=== PATIENT | female | born 1955 | race Caucasian/White ===

== ENCOUNTER 2017-11-06 10:15 | Inpatient (IN) | payer MEDICARE ==
[~2017-11-06] VITALS: Ht 149.9 cm; Wt 88.7 kg
[2017-11-06 10:15] VITALS: BP 113/41
[~2017-11-06 10:15] MED LIST: AMARYL2 MG PO; ATENOLOL25 MG PO; BRIN20TA PO; CLONAZEPAM1 M1 PO; CLONIDINE0.2 MG PO; CORTISPORIN SUS10 ML OT; DEPAKOTE ER500 MG PO; EXTENDED PHENY300 MG PO; GEODON80 MG PO; INVEGA6 MG PO; JANUVIA100 MG PO; LISINOPRIL10 M1 PO; LOTRISONE30 ML PO; METFORMIN500 MG PO; MOBIC15 MG PO; MOTRIN800 MG PO; MUCINEX DM 30 M1 TE1 PO; NAPROXEN500 MG PO; NORFLEX100 MG PO; NOVOLOG FLEX100 U/ML SC; PRILOSEC40 M1 PO; RANITIDINE150 MG PO; RISPERDAL0.5 MG PO; Synthroid,Levo50 MCG PO; TRAMADOL HCL50 MG PO; VITAMIN D50000 I3 PO; ZITHROMAX Z PA250 MG PO
[2017-11-06 10:32] LABS: BILIRUBIN NEGATIVE (NEGATIVE); BLOOD 1+ (NEGATIVE); CLARITY CLOUDY (CLEAR); COLOR YELLOW (YELLOW); GLUCOSE NEGATIVE (NEGATIVE); KETONE NEGATIVE (NEGATIVE); LEUKO ESTERASE 3+ (NEGATIVE); NITRITE POSITIVE (NEGATIVE); UROBILINOGEN 0.2 E.U./dl (0.2-1.0)
[2017-11-06 10:42] LABS: BACTERIA 4+; EPITHELIAL CELLS TNTC; RBC TNTC rbc/hpf (0-2); WBC TNTC wbc/hpf (0-5)
[2017-11-06 10:46] LABS: BASO # 0.1 10*3/uL (0.0-0.1); BASO % 0.4 % (0.0-1.0); EOS # 0.2 10*3/uL (0.0-0.4); EOS % 1.6 % (1.0-4.0); HEMATOCRIT 31.7 % (37.0-47.0); HEMOGLOBIN 9.8 g/dl (12.0-16.0); LYMPH # 1.4 10*3/uL (1.3-4.4); LYMPH % 9.9 % (27.0-41.0); MEAN CELL VOLUME 83.9 fl (81.0-99.0); MEAN CORPUSCULAR HGB 25.9 pg (27.0-31.0); MEAN CORPUSCULAR HGB CONC 30.9 g/dl (33.0-37.0); MEAN PLATELET VOLUME 10.2 fl (9.6-12.3); MONO # 0.6 10*3/uL (0.1-1.0); MONO % 3.9 % (3.0-9.0); NEUT # 11.7 10*3/uL (2.3-7.9); NEUT % 83.8 % (47.0-73.0); PLATELET COUNT AUTOMATED 340 10*3/uL (130-400); RED BLOOD COUNT 3.78 10*6/uL (4.10-5.10); RED CELL DISTRI WIDTH 15.2 % (0-14.5); WHITE BLOOD COUNT 13.9 10*3/uL (4.8-10.8)
[2017-11-06 10:54] LABS: ACT PARTIAL THROMBO TIME 23.3 SECONDS (20.8-31.5)
[2017-11-06] MEDS ORDERED: LIPITOR40 MG PO (11:03)
[2017-11-06] MEDS ORDERED: VITAMIN D31000 UNI1 PO (11:04)
[2017-11-06] MEDS ORDERED: OLANZAPINE5 MG PO (11:04)
[2017-11-06] MEDS ORDERED: TOPAMAX50 MG PO (11:04)
[2017-11-06 11:05] LABS: CREATININE 2.02 mg/dL (0.55-1.02); POTASSIUM 3.2 mmol/L (3.5-5.1); TOTAL PROTEIN 7.4 gm/dL (6.4-8.2)
[2017-11-06] MEDS ORDERED: HYDR25T PO (11:05)
[2017-11-06] MEDS ORDERED: GLIMEPIRIDE2 MG PO (11:05)
[2017-11-06] MEDS ORDERED: LISINOPRIL40 MG PO (11:05)
[2017-11-06] MEDS ORDERED: RISPERDAL3 M1 PO (11:06)
[2017-11-06] MEDS ORDERED: HYDROXYZINE HCL25 M1 PO (11:06)
[2017-11-06] MEDS ORDERED: METFORMIN500 MG PO ×3 (11:07→11:30)
[2017-11-06 11:08] VITALS: BP 132/55
[2017-11-06] MEDS ORDERED: AMLODIPINE BESY10 MG PO (11:09)
[2017-11-06 11:30] VITALS: BP 131/56
[2017-11-06] MEDS ORDERED: AMARYL2 MG PO ×2 (11:33)
[2017-11-06 16:00] VITALS: BP 114/67
[2017-11-06 20:00] VITALS: BP 122/53
[2017-11-07] VITALS: BP 133/49
[2017-11-07 07:34] LABS: BASO # 0.1 10*3/uL (0.0-0.1); BASO % 0.7 % (0.0-1.0); EOS # 0.4 10*3/uL (0.0-0.4); EOS % 4.4 % (1.0-4.0); HEMATOCRIT 29.9 % (37.0-47.0); HEMOGLOBIN 9.3 g/dl (12.0-16.0); LYMPH # 2.1 10*3/uL (1.3-4.4); LYMPH % 21.9 % (27.0-41.0); MEAN CELL VOLUME 84.5 fl (81.0-99.0); MEAN CORPUSCULAR HGB 26.3 pg (27.0-31.0); MEAN CORPUSCULAR HGB CONC 31.1 g/dl (33.0-37.0); MEAN PLATELET VOLUME 10.3 fl (9.6-12.3); MONO # 0.6 10*3/uL (0.1-1.0); MONO % 5.9 % (3.0-9.0); NEUT # 6.3 10*3/uL (2.3-7.9); NEUT % 66.6 % (47.0-73.0); PLATELET COUNT AUTOMATED 333 10*3/uL (130-400); RED BLOOD COUNT 3.54 10*6/uL (4.10-5.10); RED CELL DISTRI WIDTH 15.4 % (0-14.5); WHITE BLOOD COUNT 9.5 10*3/uL (4.8-10.8)
[2017-11-07 07:42] LABS: ALBUMIN 2.6 gm/dl (3.1-4.5); CREATININE 1.3 mg/dL (0.55-1.02); FREE T4 1.1 ng/dl (0.76-1.46); PHOSPHOROUS 2.5 mg/dL (2.5-4.9); POTASSIUM 4.1 mmol/L (3.5-5.1); TOTAL PROTEIN 6.4 gm/dL (6.4-8.2)
[2017-11-07 07:46] LABS: THYROID STIM HORMONE (HS) 7.81 uIU/ml (0.358-4.75)
[2017-11-07 08:00] VITALS: BP 126/50
[2017-11-07 09:41] LABS: VITAMIN D, 25-HYDROXY 35.4 ng/mL (30-100)
[2017-11-07 12:00] VITALS: BP 143/70
[2017-11-07 16:00] VITALS: BP 132/52
[2017-11-07 20:00] VITALS: BP 124/86
[2017-11-08] VITALS: BP 120/75
[2017-11-08 07:12] LABS: BASO # 0.1 10*3/uL (0.0-0.1); BASO % 0.8 % (0.0-1.0); EOS # 0.5 10*3/uL (0.0-0.4); EOS % 4.1 % (1.0-4.0); HEMATOCRIT 29.6 % (37.0-47.0); LYMPH # 3.2 10*3/uL (1.3-4.4); LYMPH % 26.3 % (27.0-41.0); MEAN CELL VOLUME 84.8 fl (81.0-99.0); MEAN CORPUSCULAR HGB 25.8 pg (27.0-31.0); MEAN CORPUSCULAR HGB CONC 30.4 g/dl (33.0-37.0); MEAN PLATELET VOLUME 10.2 fl (9.6-12.3); MONO # 0.7 10*3/uL (0.1-1.0); MONO % 6.1 % (3.0-9.0); NEUT # 7.6 10*3/uL (2.3-7.9); NEUT % 62.3 % (47.0-73.0); PLATELET COUNT AUTOMATED 337 10*3/uL (130-400); RED BLOOD COUNT 3.49 10*6/uL (4.10-5.10); RED CELL DISTRI WIDTH 15.6 % (0-14.5); WHITE BLOOD COUNT 12.1 10*3/uL (4.8-10.8)
[2017-11-08 07:37] LABS: CREATININE 1.17 mg/dL (0.55-1.02)
[2017-11-08 08:00] VITALS: BP 134/54
[2017-11-08] MEDS ORDERED: AMINOPHYLLIN200 MG PO ×2 (11:15→11:33)
== END 2017-11-08 12:03 | disposition home or self-care (01) | DRG 871 ==
LOC: ED 10:15 → 5E 10:57 → EDHOLD 10:57 → 5E 11:03
PROVIDERS: Emergency Medicine; Family Medicine
DX: A41.9 Sepsis, unspecified organism (principal); N17.0 Acute kidney failure with tubular necrosis; E87.2 Acidosis; N39.0 Urinary tract infection, site not specified; E44.0 Moderate protein-calorie malnutrition; R65.20 Severe sepsis without septic shock; E87.6 Hypokalemia; N18.3 Chronic kidney disease, stage 3 (moderate); R31.9 Hematuria, unspecified; D64.9 Anemia, unspecified; G40.909 Epilepsy, unspecified, not intractable, without status epilepticus; I12.9 Hypertensive chronic kidney disease with stage 1 through stage 4 chronic kidney disease, or unspecified chronic kidney disease; E11.65 Type 2 diabetes mellitus with hyperglycemia; E11.22 Type 2 diabetes mellitus with diabetic chronic kidney disease; E55.9 Vitamin D deficiency, unspecified; E78.5 Hyperlipidemia, unspecified; E11.649 Type 2 diabetes mellitus with hypoglycemia without coma; F41.1 Generalized anxiety disorder; F32.9 Major depressive disorder, single episode, unspecified; E66.01 Morbid (severe) obesity due to excess calories; E03.9 Hypothyroidism, unspecified; B96.1 Klebsiella pneumoniae [K. pneumoniae] as the cause of diseases classified elsewhere; Z88.0 Allergy status to penicillin; Z88.8 Allergy status to other drugs, medicaments and biological substances; Z91.041 Radiographic dye allergy status; Z79.899 Other long term (current) drug therapy; Z90.49 Acquired absence of other specified parts of digestive tract; Z90.89 Acquired absence of other organs; Z90.721 Acquired absence of ovaries, unilateral; Z98.51 Tubal ligation status; Z82.49 Family history of ischemic heart disease and other diseases of the circulatory system; Z68.39 Body mass index [BMI] 39.0-39.9, adult

== ENCOUNTER 2018-06-11 16:00 | Inpatient (IN) | payer MEDICARE ==
[~2018-06-11] VITALS: Ht 149.9 cm; Wt 84.5 kg
--- NOTE | ~2018-06-11 | EKG ---
[place], [place] ELECTROCARDIOGRAM REPORT NAME: LAMONTE COELLO UNIT #: [id number] ROOM: 518 DOCTOR: ANA MARÍA DRAFT REPORT BIRTHDATE: [birth year] [facility] Test Date: 2018-06-11 Test Time: 17:28:03 Pat Name: LAMONTE COELLO Department: Room: 518 Gender: F Seam Closer: 18 : 1955 Requested By: ANTHONY DRISCOLL Order Number: [id number] Reading MD: Ashkan Thomson MD Measurements Intervals [place] Rate: 72 P: 52 VA: 201 QRS: 58 QRSD: 88 T: 0 QT: 380 QTc: 416 Interpretive Statements Sinus rhythm Electronically Signed On 06-11-2018 18:18:28 PST by Ashkan Thomson MD CM:EKGRPT:ELECTROCARDIOGRAM REPORT [id number] ANTHONY GOTTI DRAFT REPORT ANTHONY DRISCOLL MD
--- NOTE | ~2018-06-11 | PR ---
[place], [place] PROGRESS NOTE NAME: LAMONTE COELLO UNIT #: [id number] ROOM: 518 DOCTOR: MINA TRIPATHI MD BIRTHDATE: [birth year] DOS: 06/15/2018 NEPHROLOGY FOLLOWUP NOTE SUBJECTIVE: The patient is seen and examined. She is awake and alert. Denies shortness of breath or chest pain. She is on room air. She feels well and hopes to go home tomorrow. PHYSICAL EXAMINATION: VITAL SIGNS: Temperature 97.2, pulse 65, respiration rate 18, blood pressure 129/50. HEENT: Shows no JVD. LUNGS: Diminished breath sounds with no wheeze. HEART: S1, S2. No rub, thrill or gallop. ABDOMEN: Soft, nontender. There is no organomegaly. EXTREMITIES: Showed no edema. SKIN: Showed no rash. LABORATORY DATA: Hemoglobin 8.8, white count 12.1, platelets 293. Sodium 141, potassium 4.2, BUN 49, creatinine 2.5, improved from 3.0, glucose 118, calcium 8.4. IMPRESSION AND PLAN: 1. Acute kidney injury, which continues to improve. Continue to follow labs while in the hospital. Dose meds for current creatinine clearance. Replace electrolytes as needed. 2. Anemia. Transfuse as needed. 3. Leukocytosis. The patient is on antibiotics. 4. Hypothyroidism. Continue levothyroxine. 5. The patient is acceptable for discharge from renal standpoint if her creatinine is stable or continues to improve. MINA TRIPATHI MD CM:PNTRANS [id number] MINA TRIPATHI MD [id number]/15/[id number] interface
[2018-06-11 16:00] VITALS: BP 122/36
[~2018-06-11 16:00] MED LIST changes: +AMINOPHYLLIN200 MG PO; +AMLODIPINE BESY10 MG PO; +GLIMEPIRIDE2 MG PO; +GLUCOPHAGE500 M1 PO; +HYDR25T PO; +LIPITOR40 MG PO; +LISINOPRIL40 MG PO; +OLANZAPINE5 MG PO; +RISPERDAL3 M1 PO; +TOPAMAX50 MG PO; +VISTARIL25 M2 PO; +VITAMIN D31000 UNI1 PO
[2018-06-11 16:47] LABS: BASO # 0.1 10*3/uL (0.0-0.1); BASO % 0.4 % (0.0-1.0); EOS # 0.1 10*3/uL (0.0-0.4); EOS % 0.6 % (1.0-4.0); HEMATOCRIT 36.2 % (37.0-47.0); HEMOGLOBIN 10.8 g/dl (12.0-16.0); LYMPH # 1.4 10*3/uL (1.3-4.4); LYMPH % 7.7 % (27.0-41.0); MEAN CELL VOLUME 80.1 fl (81.0-99.0); MEAN CORPUSCULAR HGB 23.9 pg (27.0-31.0); MEAN CORPUSCULAR HGB CONC 29.8 g/dl (33.0-37.0); MEAN PLATELET VOLUME 10.6 fl (9.6-12.3); MONO # 0.7 10*3/uL (0.1-1.0); NEUT # 15.7 10*3/uL (2.3-7.9); NEUT % 86.6 % (47.0-73.0); PLATELET COUNT AUTOMATED 358 10*3/uL (130-400); RED BLOOD COUNT 4.52 10*6/uL (4.10-5.10); RED CELL DISTRI WIDTH 17.4 % (0-14.5); WHITE BLOOD COUNT 18.1 10*3/uL (4.8-10.8)
[2018-06-11 16:59] LABS: ACT PARTIAL THROMBO TIME 27.8 SECONDS (20.8-31.5); INTERNATIONAL NORM RATIO 0.9 (2.0-3.5)
[2018-06-11 17:01] LABS: BILIRUBIN NEGATIVE (NEGATIVE); BLOOD 2+ (NEGATIVE); CLARITY CLOUDY (CLEAR); COLOR YELLOW (YELLOW); GLUCOSE NEGATIVE (NEGATIVE); KETONE TRACE (NEGATIVE); LEUKO ESTERASE 2+ (NEGATIVE); NITRITE NEGATIVE (NEGATIVE); SPECIFIC GRAVITY >= 1.030 (1.005-1.030); UROBILINOGEN 0.2 E.U./dl (0.2-1.0)
[2018-06-11 17:04] LABS: ALBUMIN 3.2 gm/dl (3.1-4.5); ALKALINE PHOSPHATASE 128 U/L (45-117); BUN 92 mg/dl (7-24); CHLORIDE 108 mmol/L (98-107); CREATININE 6.47 mg/dL (0.55-1.02); POTASSIUM 5.5 mmol/L (3.5-5.1); SGOT/AST 11 IU/L (3-35); SGPT/ALT 14 U/L (12-78); SODIUM 136 mmol/L (136-145); TOTAL PROTEIN 8.3 gm/dL (6.4-8.2)
[2018-06-11 17:07] LABS: TROPONIN I < 0.015 ng/ml (<0.045)
[2018-06-11 17:08] LABS: BACTERIA 3+; WBC TNTC wbc/hpf (0-5)
[2018-06-11 17:46] VITALS: BP 134/94
[2018-06-11] MEDS ORDERED: KLONOPIN0.5 MG PO (17:50)
[2018-06-11] MEDS ORDERED: BENZTROPINE MESY1 MG PO (18:01)
[2018-06-11 18:05] VITALS: BP 124/54
[2018-06-11] MEDS ORDERED: Synthroid,Levo25 MCG PO (18:33)
[2018-06-11 20:00] VITALS: BP 125/69
[2018-06-12] VITALS: BP 114/59
[2018-06-12 05:23] LABS: BASO # 0.1 10*3/uL (0.0-0.1); BASO % 0.8 % (0.0-1.0); EOS # 0.6 10*3/uL (0.0-0.4); EOS % 4.7 % (1.0-4.0); HEMATOCRIT 30.8 % (37.0-47.0); HEMOGLOBIN 9.4 g/dl (12.0-16.0); LYMPH # 2.6 10*3/uL (1.3-4.4); LYMPH % 21.9 % (27.0-41.0); MEAN CELL VOLUME 77.8 fl (81.0-99.0); MEAN CORPUSCULAR HGB 23.7 pg (27.0-31.0); MEAN CORPUSCULAR HGB CONC 30.5 g/dl (33.0-37.0); MEAN PLATELET VOLUME 10.6 fl (9.6-12.3); MONO # 0.8 10*3/uL (0.1-1.0); MONO % 6.8 % (3.0-9.0); NEUT # 7.7 10*3/uL (2.3-7.9); NEUT % 65.5 % (47.0-73.0); PLATELET COUNT AUTOMATED 326 10*3/uL (130-400); RED BLOOD COUNT 3.96 10*6/uL (4.10-5.10); RED CELL DISTRI WIDTH 17.2 % (0-14.5); WHITE BLOOD COUNT 11.8 10*3/uL (4.8-10.8)
[2018-06-12 05:34] LABS: ALBUMIN 2.5 gm/dl (3.1-4.5); CREATININE 5.37 mg/dL (0.55-1.02); PHOSPHOROUS 5.1 mg/dL (2.5-4.9); TOTAL PROTEIN 6.7 gm/dL (6.4-8.2)
[2018-06-12 05:40] LABS: FREE T4 0.82 ng/dl (0.76-1.46); THYROID STIM HORMONE (HS) 1.91 uIU/ml (0.358-4.75)
[2018-06-12 07:52] LABS: VITAMIN D, 25-HYDROXY 30.3 ng/mL (30-100)
[2018-06-12 08:00] VITALS: BP 112/41
[2018-06-12 12:00] VITALS: BP 133/58
[2018-06-12 16:00] VITALS: BP 122/48
[2018-06-12 20:00] VITALS: BP 116/37
[2018-06-13] VITALS: BP 119/48
[2018-06-13 06:32] LABS: BASO # 0.1 10*3/uL (0.0-0.1); BASO % 1.1 % (0.0-1.0); EOS # 0.6 10*3/uL (0.0-0.4); EOS % 6.6 % (1.0-4.0); HEMATOCRIT 26.6 % (37.0-47.0); HEMOGLOBIN 8.6 g/dl (12.0-16.0); LYMPH % 31.6 % (27.0-41.0); MEAN CORPUSCULAR HGB 24.2 pg (27.0-31.0); MEAN CORPUSCULAR HGB CONC 32.3 g/dl (33.0-37.0); MEAN PLATELET VOLUME 10.1 fl (9.6-12.3); MONO # 0.8 10*3/uL (0.1-1.0); MONO % 8.9 % (3.0-9.0); NEUT # 4.9 10*3/uL (2.3-7.9); NEUT % 51.5 % (47.0-73.0); PLATELET COUNT AUTOMATED 290 10*3/uL (130-400); RED BLOOD COUNT 3.56 10*6/uL (4.10-5.10); WHITE BLOOD COUNT 9.5 10*3/uL (4.8-10.8)
[2018-06-13 06:39] LABS: MEAN CELL VOLUME 74.7 fl (81.0-99.0)
[2018-06-13 06:48] LABS: ALBUMIN 2.3 gm/dl (3.1-4.5); CREATININE 3.7 mg/dL (0.55-1.02); POTASSIUM 4.2 mmol/L (3.5-5.1); TOTAL PROTEIN 5.9 gm/dL (6.4-8.2)
[2018-06-13 08:00] VITALS: BP 145/57
[2018-06-13 12:00] VITALS: BP 142/44
[2018-06-13 16:00] VITALS: BP 139/62
[2018-06-13 20:00] VITALS: BP 150/69
[2018-06-14] VITALS: BP 124/52
[2018-06-14 03:20] VITALS: BP 98/64
[2018-06-14 06:20] LABS: BASO # 0.1 10*3/uL (0.0-0.1); EOS # 0.7 10*3/uL (0.0-0.4); EOS % 5.8 % (1.0-4.0); HEMOGLOBIN 8.9 g/dl (12.0-16.0); LYMPH # 4.3 10*3/uL (1.3-4.4); LYMPH % 37.3 % (27.0-41.0); MEAN CELL VOLUME 76.1 fl (81.0-99.0); MEAN CORPUSCULAR HGB 24.2 pg (27.0-31.0); MEAN CORPUSCULAR HGB CONC 31.8 g/dl (33.0-37.0); MEAN PLATELET VOLUME 10.5 fl (9.6-12.3); MONO # 1.1 10*3/uL (0.1-1.0); MONO % 9.2 % (3.0-9.0); NEUT # 5.3 10*3/uL (2.3-7.9); NEUT % 46.4 % (47.0-73.0); PLATELET COUNT AUTOMATED 300 10*3/uL (130-400); RED BLOOD COUNT 3.68 10*6/uL (4.10-5.10); RED CELL DISTRI WIDTH 16.8 % (0-14.5); WHITE BLOOD COUNT 11.5 10*3/uL (4.8-10.8)
[2018-06-14 08:00] VITALS: BP 135/56
[2018-06-14 12:00] VITALS: BP 148/64
[2018-06-14 16:00] VITALS: BP 139/60
[2018-06-14 20:00] VITALS: BP 126/46
[2018-06-15] VITALS: BP 142/51
[2018-06-15 06:02] LABS: CREATININE 2.5 mg/dL (0.55-1.02); POTASSIUM 4.2 mmol/L (3.5-5.1)
[2018-06-15 06:08] LABS: BASO # 0.1 10*3/uL (0.0-0.1); BASO % 1.2 % (0.0-1.0); EOS # 0.9 10*3/uL (0.0-0.4); EOS % 7.7 % (1.0-4.0); HEMATOCRIT 28.5 % (37.0-47.0); HEMOGLOBIN 8.8 g/dl (12.0-16.0); LYMPH # 4.3 10*3/uL (1.3-4.4); LYMPH % 35.5 % (27.0-41.0); MEAN CELL VOLUME 78.1 fl (81.0-99.0); MEAN CORPUSCULAR HGB 24.1 pg (27.0-31.0); MEAN CORPUSCULAR HGB CONC 30.9 g/dl (33.0-37.0); MEAN PLATELET VOLUME 10.7 fl (9.6-12.3); MONO # 1.1 10*3/uL (0.1-1.0); MONO % 8.9 % (3.0-9.0); NEUT # 5.6 10*3/uL (2.3-7.9); NEUT % 46.4 % (47.0-73.0); PLATELET COUNT AUTOMATED 293 10*3/uL (130-400); RED BLOOD COUNT 3.65 10*6/uL (4.10-5.10); RED CELL DISTRI WIDTH 16.5 % (0-14.5); WHITE BLOOD COUNT 12.1 10*3/uL (4.8-10.8)
[2018-06-15 08:00] VITALS: BP 144/67
[2018-06-15 12:00] VITALS: BP 157/59
[2018-06-15 16:00] VITALS: BP 129/50
[2018-06-15 20:00] VITALS: BP 126/43
[2018-06-16] VITALS: BP 135/45
[2018-06-16 06:55] LABS: CREATININE 2.23 mg/dL (0.55-1.02); POTASSIUM 3.9 mmol/L (3.5-5.1)
[2018-06-16 08:00] VITALS: BP 116/46
[2018-06-16 12:00] VITALS: BP 121/43
[2018-06-16 16:00] VITALS: BP 141/59
[2018-06-16] MEDS ORDERED: VIBRAMYCIN100 MG PO (16:37)
[2018-06-16] MEDS ORDERED: GLIPIZIDE XL2.5 M1 PO (16:59)
[2018-06-17] MEDS ORDERED: AMINOPHYLLIN200 MG PO (11:36)
== END 2018-06-16 17:19 | disposition home or self-care (01) | DRG 871 ==
LOC: ED 16:00 → 5E 17:21 → EDHOLD 17:21 → 5E 17:43
PROVIDERS: Emergency Medicine; Family Medicine; Internal Medicine; Internal Medicine Nephrology
DX: A41.9 Sepsis, unspecified organism (principal); N17.0 Acute kidney failure with tubular necrosis; E43 Unspecified severe protein-calorie malnutrition; N39.0 Urinary tract infection, site not specified; E87.2 Acidosis; E11.649 Type 2 diabetes mellitus with hypoglycemia without coma; N18.3 Chronic kidney disease, stage 3 (moderate); E87.5 Hyperkalemia; D64.9 Anemia, unspecified; E03.9 Hypothyroidism, unspecified; G40.909 Epilepsy, unspecified, not intractable, without status epilepticus; F25.0 Schizoaffective disorder, bipolar type; F41.1 Generalized anxiety disorder; F32.9 Major depressive disorder, single episode, unspecified; E87.8 Other disorders of electrolyte and fluid balance, not elsewhere classified; K21.9 Gastro-esophageal reflux disease without esophagitis; B96.1 Klebsiella pneumoniae [K. pneumoniae] as the cause of diseases classified elsewhere; I12.9 Hypertensive chronic kidney disease with stage 1 through stage 4 chronic kidney disease, or unspecified chronic kidney disease; E66.01 Morbid (severe) obesity due to excess calories; E11.22 Type 2 diabetes mellitus with diabetic chronic kidney disease; Z88.6 Allergy status to analgesic agent; Z68.37 Body mass index [BMI] 37.0-37.9, adult; Z91.041 Radiographic dye allergy status; Z88.0 Allergy status to penicillin; Z91.048 Other nonmedicinal substance allergy status; Z87.440 Personal history of urinary (tract) infections; Z90.49 Acquired absence of other specified parts of digestive tract; Z90.721 Acquired absence of ovaries, unilateral; Z98.51 Tubal ligation status; Z82.49 Family history of ischemic heart disease and other diseases of the circulatory system; Z83.1 Family history of other infectious and parasitic diseases; Z84.89 Family history of other specified conditions; Z79.899 Other long term (current) drug therapy

== ENCOUNTER 2018-06-25 13:20 | Emergency (ER) | payer MEDICARE ==
[~2018-06-25] VITALS: Ht 149.8 cm; Wt 83.0 kg
[~2018-06-25 13:20] MED LIST changes: +BENZTROPINE MESY1 MG PO; +GLIPIZIDE XL2.5 M1 PO; +KLONOPIN0.5 MG PO; +Synthroid,Levo25 MCG PO; +VIBRAMYCIN100 MG PO
[2018-06-25 13:22] VITALS: BP 135/47
== END 2018-06-25 15:01 | disposition home or self-care (01) ==
LOC: ED 13:20
DX: L29.8 Other pruritus (principal); E07.9 Disorder of thyroid, unspecified; I10 Essential (primary) hypertension; E11.9 Type 2 diabetes mellitus without complications; Z91.041 Radiographic dye allergy status; Z88.6 Allergy status to analgesic agent; Z88.1 Allergy status to other antibiotic agents; Z79.84 Long term (current) use of oral hypoglycemic drugs; Z79.899 Other long term (current) drug therapy; Z90.49 Acquired absence of other specified parts of digestive tract

== ENCOUNTER 2018-08-15 22:34 | Inpatient (IN) | payer MEDICARE ==
[~2018-08-15] VITALS: Ht 149.9 cm; Wt 88.6 kg
--- NOTE | ~2018-08-15 | EKG ---
[place], [place] ELECTROCARDIOGRAM REPORT NAME: LAMONTE COELLO UNIT #: [id number] ROOM: 524 DOCTOR: ANA MARÍA DRAFT REPORT BIRTHDATE: [birth year] [facility] Test Date: 2018-08-15 Test Time: 22:54:58 Pat Name: LAMONTE COELLO Department: Room: 524 Gender: F Director Of Exhibits: Ashkan Henson : 1955 Requested By: ZANDRA HANSEN PA-C Order Number: [id number] Reading MD: Dottie Batista Measurements Intervals [place] Rate: 67 P: 4 WI: 141 QRS: 57 QRSD: 88 T: 31 QT: 386 QTc: 408 Interpretive Statements Sinus rhythm Compared to ECG 06/11/2018 17:28:03 No significant changes Electronically Signed On 08-22-2018 11:48:44 PST by Dottie Batista CM:EKGRPT:ELECTROCARDIOGRAM REPORT [id number] ZANDRA GOTTI DRAFT REPORT ZANDRA HANSEN PA-C
[2018-08-15 22:37] VITALS: BP 94/71
--- NOTE | 2018-08-15 22:43 | NUR ---
LAST KNOWN WELL 2144
[2018-08-15 23:38] LABS: BASO # 0.2 10*3/uL (0.0-0.1); BASO % 0.9 % (0.0-1.0); EOS # 0.4 10*3/uL (0.0-0.4); EOS % 2.6 % (1.0-4.0); HEMATOCRIT 36.6 % (37.0-47.0); HEMOGLOBIN 11.4 g/dl (12.0-16.0); LYMPH % 12.1 % (27.0-41.0); MEAN CELL VOLUME 82.1 fl (81.0-99.0); MEAN CORPUSCULAR HGB 25.6 pg (27.0-31.0); MEAN CORPUSCULAR HGB CONC 31.1 g/dl (33.0-37.0); MEAN PLATELET VOLUME 10.8 fl (9.6-12.3); MONO # 1.1 10*3/uL (0.1-1.0); MONO % 6.8 % (3.0-9.0); NEUT # 12.7 10*3/uL (2.3-7.9); NEUT % 77.2 % (47.0-73.0); PLATELET COUNT AUTOMATED 336 10*3/uL (130-400); RED BLOOD COUNT 4.46 10*6/uL (4.10-5.10); RED CELL DISTRI WIDTH 17.7 % (0-14.5); WHITE BLOOD COUNT 16.4 10*3/uL (4.8-10.8)
[2018-08-15 23:40] VITALS: BP 135/47
[2018-08-15 23:50] LABS: ACT PARTIAL THROMBO TIME 20.4 SECONDS (20.8-31.5); INTERNATIONAL NORM RATIO 0.9 (2.0-3.5)
--- NOTE | 2018-08-15 23:52 | NUR ---
LA 3.4, NOTIFIED DR KEY
[2018-08-15 23:53] LABS: ALBUMIN 3.3 gm/dl (3.1-4.5); ALKALINE PHOSPHATASE 136 U/L (45-117); BUN 36 mg/dl (7-24); CHLORIDE 107 mmol/L (98-107); CREATININE 1.72 mg/dL (0.55-1.02); LIPASE 214 U/L (73-393); POTASSIUM 4.7 mmol/L (3.5-5.1); SGOT/AST 14 IU/L (3-35); SGPT/ALT 13 U/L (12-78); SODIUM 137 mmol/L (136-145); TOTAL PROTEIN 7.8 gm/dL (6.4-8.2)
[2018-08-15 23:57] LABS: TROPONIN I < 0.015 ng/ml (<0.045)
[2018-08-16 00:58] LABS: BILIRUBIN NEGATIVE (NEGATIVE); BLOOD NEGATIVE (NEGATIVE); CLARITY CLEAR (CLEAR); COLOR YELLOW (YELLOW); GLUCOSE NEGATIVE (NEGATIVE); KETONE NEGATIVE (NEGATIVE); LEUKO ESTERASE 1+ (NEGATIVE); NITRITE NEGATIVE (NEGATIVE); UROBILINOGEN 0.2 E.U./dl (0.2-1.0)
[2018-08-16 01:00] VITALS: BP 139/65
--- NOTE | 2018-08-16 01:00 | NUR ---
A 63, admitted to 5E, under the services of KALEN Bazan DO with a diagnosis of SYNCOPE AND COLLAPSE. Chief complaint is SYNCOPE. Patient arrived via stretcher from ER. Monitor applied. Initial assessment completed. Vital signs taken and recorded. KALEN BAZAN DO notified of admission to the unit. Orders received. See assessment for past medical history, medications and allergies. Patient and/or family oriented to unit. visitation policy reviewed. Clothing/patient valuable form completed. JOSE FRANCISCO MCKNIGHT
[2018-08-16 01:09] LABS: URINE AMPHETAMINES < 1000 (1000ng/ml); URINE BARBITURATES < 200 (200ng/ml); URINE BENZODIAZEPINES < 200 (200ng/ml); URINE CANNABINOIDS (THC) < 50 (50ng/ml); URINE COCAINE < 300 (300ng/ml); URINE METHADONE < 300 (300ng/ml); URINE OPIATES < 300 (300ng/ml)
[2018-08-16 01:16] LABS: URINE PHENCYCLIDINE < 25 (25ng/ml)
--- NOTE | 2018-08-16 01:41 | NUR ---
UNABLE TO UPDATE PATIENT'S MED LIST AT THIS TIME, PATIENT DOES NOT KNOW ALL MEDICATIONS TAKEN.
--- NOTE | 2018-08-16 02:27 | NUR ---
SPOKE WITH DR. MACDONALD REGARDING ABRASIONS TO LEFT ARM AND BOTTOM LIP REGARDING WOUND CARE ORDERS. DR. MACDONALD STATED TO LEAVE OPEN TO AIR, INFORMED DR. MACDONALD THAT DR. CUELLAR PLACED IN ADMISSION ORDERS FOR SKIN TEARS, OK TO D/C PER RENAE.
[2018-08-16 05:58] LABS: CREATININE 1.7 mg/dL (0.55-1.02); PHOSPHOROUS 3.8 mg/dL (2.5-4.9); POTASSIUM 4.8 mmol/L (3.5-5.1); TOTAL PROTEIN 7.1 gm/dL (6.4-8.2); TROPONIN I 0.015 ng/ml (<0.045)
[2018-08-16 05:59] LABS: FREE T4 1.21 ng/dl (0.76-1.46)
--- NOTE | 2018-08-16 06:00 | NUR ---
BLOOD GLUCOSE 103.
[2018-08-16 06:03] LABS: THYROID STIM HORMONE (HS) 4.15 uIU/ml (0.358-4.75)
[2018-08-16 06:32] LABS: BASO # 0.1 10*3/uL (0.0-0.1); BASO % 0.7 % (0.0-1.0); EOS # 0.1 10*3/uL (0.0-0.4); EOS % 0.8 % (1.0-4.0); HEMATOCRIT 33.2 % (37.0-47.0); HEMOGLOBIN 10.1 g/dl (12.0-16.0); LYMPH # 2.2 10*3/uL (1.3-4.4); LYMPH % 13.1 % (27.0-41.0); MEAN CELL VOLUME 80.6 fl (81.0-99.0); MEAN CORPUSCULAR HGB 24.5 pg (27.0-31.0); MEAN CORPUSCULAR HGB CONC 30.4 g/dl (33.0-37.0); MEAN PLATELET VOLUME 11.4 fl (9.6-12.3); MONO % 6.1 % (3.0-9.0); NEUT # 13.1 10*3/uL (2.3-7.9); NEUT % 78.9 % (47.0-73.0); PLATELET COUNT AUTOMATED 333 10*3/uL (130-400); RED BLOOD COUNT 4.12 10*6/uL (4.10-5.10); RED CELL DISTRI WIDTH 17.8 % (0-14.5); WHITE BLOOD COUNT 16.6 10*3/uL (4.8-10.8)
[2018-08-16 07:30] VITALS: BP 118/60
--- NOTE | 2018-08-16 08:27 | NUR ---
PHYSICAL THERAPY Nursing screen received. PT orders also received. Thank you. Arline Cisneros,PT
--- NOTE | 2018-08-16 09:05 | NUR ---
MEDICATED AT THIS TIME WITH PRN PO TYLENOL AND IV ZOFRAN FOR HEADACHE AND NAUSEA.
[2018-08-16] MEDS ORDERED: GLUCOTROL5 MG PO (09:21)
[2018-08-16] MEDS ORDERED: XANAX0.25 MG PO (09:22)
[2018-08-16] MEDS ORDERED: LASIX20 MG PO (09:23)
--- NOTE | 2018-08-16 09:24 | NUR ---
UPDATED HOME MEDICATIONS LIST WITH INFORMATION PROVIDED BY TREMAINE DUFFY PHARMACIST. RECENTLY FILLED MEDS ENTERED, PER PHARMACIST, SOME MEDS NOT REFILLED IN A LONG TIME.
--- NOTE | 2018-08-16 10:00 | NUR ---
PRN IV ZOFRAN WAS EFFECTIVE FOR NAUSEA, BUT PRN PO TYLENOL WAS NOT EFFECTIVE FOR HEADACHE.
[2018-08-16 12:00] VITALS: BP 128/51
--- NOTE | 2018-08-16 13:43 | NUR ---
PHYSICAL THERAPY PT DURAN COMPLETED TODAY ON LEVEL 5: FULL EVALUATION TO FOLLOW. AFTER COMPLETION OF EVALUATION SHE IS FOUND TO BE MOBILE AND ABLE TO WALK (I) WITH NO AD AND DEMONSTRATES NO BALANCE DEFICITS AND STATES SHE DOES NOT FEEL SHE NEEDS ANY PT WHILE HER WHICH I AM IN AGREEMENT WITH. PT DURAN IS LOW COMPLEXITY BASED ON CHART REVIEW, TEST RESULTS AND EVALUATION: [id number]. THANK YOU FOR REFERRAL STEF BORJA PT
--- NOTE | 2018-08-16 13:52 | NUR ---
MEDICATED WITH PRN PO VISTARIL FOR ANXIETY.
[2018-08-16] MEDS ORDERED: LIPITOR40 MG PO (13:59)
[2018-08-16] MEDS ORDERED: TOPAMAX25 M3 PO (14:00)
[2018-08-16] MEDS ORDERED: HYDROXYZINE PAM25 M1 PO (14:00)
[2018-08-16] MEDS ORDERED: VITAMIN D31000 UNI1 PO (14:01)
[2018-08-16] MEDS ORDERED: RISPERDAL3 M1 PO (14:01)
[2018-08-16] MEDS ORDERED: 'KLONOPIN0.5 MG PO (14:01)
[2018-08-16] MEDS ORDERED: BENZTROPINE MESY1 MG PO (14:02)
--- NOTE | 2018-08-16 14:05 | NUR ---
UPDATED MED REC ACCORDING TO INFORMATION PROVIDED BY PATIENT'S .
--- NOTE | 2018-08-16 15:00 | NUR ---
PATIENT SLEEPING; PRN PO VISTARIL EFFECTIVE.
[2018-08-16 16:00] VITALS: BP 125/65
--- NOTE | 2018-08-16 19:55 | NUR ---
CHART CHECK COMPLETE.
[2018-08-16 20:00] VITALS: BP 130/54
--- NOTE | 2018-08-16 20:07 | NUR ---
ASSUMED CARE OF PATIENT. ASSESSMENT IS COMPLETE WITH NO C/O OR S/S OF DISTRESS NOTED AT THIS TIME, BED IS LOW, LOCKED, ALARMED, AND CALL LIGHT IS WITHIN REACH. SEE SHIFT ASSESSMENT.
--- NOTE | 2018-08-16 20:49 | NUR ---
BEDSIDE GLUCOSE 263.
[2018-08-17] VITALS: BP 113/71
[2018-08-17 08:01] VITALS: BP 124/62
[2018-08-17 08:31] LABS: BASO # 0.1 10*3/uL (0.0-0.1); EOS # 0.5 10*3/uL (0.0-0.4); EOS % 5.7 % (1.0-4.0); HEMATOCRIT 33.7 % (37.0-47.0); HEMOGLOBIN 10.4 g/dl (12.0-16.0); LYMPH # 2.3 10*3/uL (1.3-4.4); LYMPH % 25.8 % (27.0-41.0); MEAN CELL VOLUME 83.2 fl (81.0-99.0); MEAN CORPUSCULAR HGB 25.7 pg (27.0-31.0); MEAN CORPUSCULAR HGB CONC 30.9 g/dl (33.0-37.0); MEAN PLATELET VOLUME 10.9 fl (9.6-12.3); MONO # 0.6 10*3/uL (0.1-1.0); MONO % 7.2 % (3.0-9.0); NEUT # 5.3 10*3/uL (2.3-7.9); NEUT % 59.9 % (47.0-73.0); PLATELET COUNT AUTOMATED 262 10*3/uL (130-400); RED BLOOD COUNT 4.05 10*6/uL (4.10-5.10); RED CELL DISTRI WIDTH 17.6 % (0-14.5); WHITE BLOOD COUNT 8.9 10*3/uL (4.8-10.8)
[2018-08-17 08:41] LABS: ALBUMIN 2.6 gm/dl (3.1-4.5); CREATININE 1.33 mg/dL (0.55-1.02); POTASSIUM 4.7 mmol/L (3.5-5.1); TOTAL PROTEIN 6.4 gm/dL (6.4-8.2)
[2018-08-17 12:00] VITALS: BP 121/49
--- NOTE | 2018-08-17 15:30 | NUR ---
Discharge instructions reviewed with patient/family. Patient receptive and verbalizes understanding. Follow-up care arranged. Written instructions given to patient/family. Patient ambulated from unit with her . Patient and staff members were unable to locate the pants the patient wore on admission. ABILIO SANON
[2018-10-04] MEDS ORDERED: GLIPIZIDE5 MG PO (17:44)
[2018-10-04] MEDS ORDERED: Glimepiride1 MG PO (17:44)
[2018-10-05] MEDS ORDERED: Synthroid,Levo50 MCG PO (15:14)
[2018-10-05] MEDS ORDERED: SYNTHROID25 MCG PO (16:16)
== END 2018-08-17 15:30 | disposition home or self-care (01) | DRG 637 ==
LOC: ED 22:34 → EDHOLD 08-16 00:07 → 5E 08-16 00:20
PROVIDERS: Emergency Medicine Emergency Medical Services; Family Medicine; Student in an Organized Health Care Education/Training Program; ADMIT Internal Medicine
DX: E11.65 Type 2 diabetes mellitus with hyperglycemia (principal); G93.41 Metabolic encephalopathy; N17.9 Acute kidney failure, unspecified; E87.2 Acidosis; E44.0 Moderate protein-calorie malnutrition; N39.0 Urinary tract infection, site not specified; D72.823 Leukemoid reaction; D64.9 Anemia, unspecified; I34.0 Nonrheumatic mitral (valve) insufficiency; R06.89 Other abnormalities of breathing; E86.0 Dehydration; G40.909 Epilepsy, unspecified, not intractable, without status epilepticus; I12.9 Hypertensive chronic kidney disease with stage 1 through stage 4 chronic kidney disease, or unspecified chronic kidney disease; E11.22 Type 2 diabetes mellitus with diabetic chronic kidney disease; N18.3 Chronic kidney disease, stage 3 (moderate); E55.9 Vitamin D deficiency, unspecified; E78.5 Hyperlipidemia, unspecified; E66.01 Morbid (severe) obesity due to excess calories; F41.1 Generalized anxiety disorder; F32.9 Major depressive disorder, single episode, unspecified; F25.0 Schizoaffective disorder, bipolar type; K21.9 Gastro-esophageal reflux disease without esophagitis; E03.9 Hypothyroidism, unspecified; Z86.73 Personal history of transient ischemic attack (TIA), and cerebral infarction without residual deficits; Z88.6 Allergy status to analgesic agent; Z88.0 Allergy status to penicillin; Z91.041 Radiographic dye allergy status; Z91.048 Other nonmedicinal substance allergy status; Z87.440 Personal history of urinary (tract) infections; Z90.49 Acquired absence of other specified parts of digestive tract; Z90.721 Acquired absence of ovaries, unilateral; Z82.49 Family history of ischemic heart disease and other diseases of the circulatory system; Z84.89 Family history of other specified conditions; Z79.899 Other long term (current) drug therapy; Z68.39 Body mass index [BMI] 39.0-39.9, adult

== ENCOUNTER 2018-10-17 12:40 | Inpatient (IN) | payer MEDICARE ==
[~2018-10-17] VITALS: Ht 144.8 cm; Wt 90.7 kg
--- NOTE | ~2018-10-17 | CON ---
[place], [place] REPORT OF CONSULTATION NAME: LAMONTE COELLO UNIT #: [id number] ROOM: 518 DOCTOR: RAZ PRADHAN MD BIRTHDATE: [birth year] DOS: 10/18/2018 CHIEF COMPLAINT: The patient was overly somnolent. HISTORY OF PRESENT ILLNESS: This is a 63-year-old white female with a lengthy history of schizoaffective disorder that was initially admitted to the [facility] for an exacerbation of her psychosis. The patient was extremely psychotic and delusional and believed that she was being investigated by the FBI and by the [facility] [employer] Department and that people were coming to get her. Despite loading her with Invega Sustenna 234 mg and following up with a secondary loading dose of 156 mg, the patient's psychosis persisted. I did start her on Latuda and brought the dose up to 120 mg without any apparent positive effects. This was subsequently discontinued and Clozaril was added. Shortly after adding the Clozaril, the patient did have a syncopal episode and a code was called on her and she was subsequently admitted to the ICU for further stabilization. While in ICU, all of her psychotropic medications have been discontinued and the patient's blood pressure seems to have restabilized. MENTAL STATUS: Limited because of her overall level of somnolence. However, on the day that she did get admitted to the ICU, the patient remained grossly psychotic and delusional. DIAGNOSIS: Schizoaffective disorder. PLAN: I would anticipate she will require continued psychiatric hospitalizations. Once she medically stabilized, please notify me at that time and I will help facilitate a readmission to the [facility]. RAZ PRADHAN MD CM:CONSTR:REPORT OF CONSULTATION 0916 10/18/18 1615 interface
[2018-10-17 12:30] VITALS: BP 108/60
--- NOTE | 2018-10-17 12:30 | NUR ---
A 63, admitted to ICCU, under the services of BULMARO Walters DO with a diagnosis of HYPOTENSION. Chief complaint is DIZZY, LOW BLOOD PRESSURE. Patient arrived via stretcher from [place]. Monitor applied. Initial assessment completed. Vital signs taken and recorded. BULMARO WALTERS DO notified of admission to the unit. Orders received. See assessment for past medical history, medications and allergies. Patient and/or family oriented to unit. [facility] visitation policy reviewed. Clothing/patient valuable form completed. JOSE DUNCAN
[~2018-10-17 12:40] MED LIST changes: +'KLONOPIN0.5 MG PO; +GLIPIZIDE5 MG PO; +GLUCOTROL5 MG PO; +Glimepiride1 MG PO; +HYDROXYZINE PAM25 M1 PO; +LASIX20 MG PO; +SYNTHROID25 MCG PO; +TOPAMAX25 M3 PO; +XANAX0.25 MG PO
[2018-10-17 13:15] LABS: BASO % 0.6 % (0.0-1.0); EOS # 0.1 10*3/uL (0.0-0.4); EOS % 1.8 % (1.0-4.0); HEMATOCRIT 36.4 % (37.0-47.0); HEMOGLOBIN 11.3 g/dl (12.0-16.0); LYMPH # 0.9 10*3/uL (1.3-4.4); LYMPH % 14.4 % (27.0-41.0); MEAN CELL VOLUME 84.7 fl (81.0-99.0); MEAN CORPUSCULAR HGB 26.3 pg (27.0-31.0); MEAN PLATELET VOLUME 10.4 fl (9.6-12.3); MONO # 0.9 10*3/uL (0.1-1.0); MONO % 13.9 % (3.0-9.0); NEUT # 4.3 10*3/uL (2.3-7.9); NEUT % 68.8 % (47.0-73.0); PLATELET COUNT AUTOMATED 308 10*3/uL (130-400); RED CELL DISTRI WIDTH 15.8 % (0-14.5); WHITE BLOOD COUNT 6.2 10*3/uL (4.8-10.8)
[2018-10-17 13:32] LABS: ALBUMIN 3.1 gm/dl (3.1-4.5); ALKALINE PHOSPHATASE 116 U/L (45-117); BUN 26 mg/dl (7-24); CHLORIDE 103 mmol/L (98-107); CREATININE 2.02 mg/dL (0.55-1.02); POTASSIUM 4.4 mmol/L (3.5-5.1); SGOT/AST 11 IU/L (3-35); SGPT/ALT 19 U/L (12-78); SODIUM 137 mmol/L (136-145); TOTAL PROTEIN 7.5 gm/dL (6.4-8.2)
[2018-10-17 13:36] LABS: TROPONIN I < 0.015 ng/ml (<0.045)
[2018-10-17 16:00] VITALS: BP 151/68
[2018-10-17 16:35] LABS: BILIRUBIN NEGATIVE (NEGATIVE); BLOOD 1+ (NEGATIVE); CLARITY SL CLOUDY (CLEAR); COLOR YELLOW (YELLOW); GLUCOSE NEGATIVE (NEGATIVE); KETONE NEGATIVE (NEGATIVE); LEUKO ESTERASE 1+ (NEGATIVE); NITRITE NEGATIVE (NEGATIVE); PH 5.5 (5.0-9.0); SPECIFIC GRAVITY <= 1.005 (1.005-1.030); UROBILINOGEN 0.2 E.U./dl (0.2-1.0)
[2018-10-17 16:43] LABS: BACTERIA 3+; EPITHELIAL CELLS 21-30; URIC ACID CRYSTALS 1+; WBC 21-30 wbc/hpf (0-5)
[2018-10-17 20:00] VITALS: BP 111/66
--- NOTE | 2018-10-17 23:00 | NUR ---
PATIENT LAYING IN BED WITH COVERS PULLED OVER HEAD. PATIENT ALERT TO PERSON, AND PLACE. PATIENT DENIES ANY PAIN OR DISCOMFORT UPON ASSESSMENT. PATIENT ABLE TO STAND AND AMBULATE TO BSC WITH NO ASSISTANCE. CALL LIGHT WITHIN REACH, SEE ASSESSMENT.
[2018-10-18] VITALS: BP 141/63
--- NOTE | 2018-10-18 03:55 | NUR ---
PATIENT GIVEN TYLENOL FOR ELEVATED TEMP. WILL CONTINUE TO MONITOR AND REASSESS.
[2018-10-18 04:00] VITALS: BP 138/52
[2018-10-18 06:21] LABS: BASO % 0.7 % (0.0-1.0); EOS # 0.2 10*3/uL (0.0-0.4); EOS % 3.1 % (1.0-4.0); HEMATOCRIT 32.8 % (37.0-47.0); HEMOGLOBIN 9.9 g/dl (12.0-16.0); LYMPH # 1.7 10*3/uL (1.3-4.4); LYMPH % 28.7 % (27.0-41.0); MEAN CELL VOLUME 86.3 fl (81.0-99.0); MEAN CORPUSCULAR HGB 26.1 pg (27.0-31.0); MEAN CORPUSCULAR HGB CONC 30.2 g/dl (33.0-37.0); MEAN PLATELET VOLUME 10.4 fl (9.6-12.3); MONO % 16.2 % (3.0-9.0); NEUT % 51.1 % (47.0-73.0); PLATELET COUNT AUTOMATED 259 10*3/uL (130-400); RED CELL DISTRI WIDTH 15.8 % (0-14.5); WHITE BLOOD COUNT 5.9 10*3/uL (4.8-10.8)
[2018-10-18 06:38] LABS: POTASSIUM 4.8 mmol/L (3.5-5.1)
[2018-10-18 06:40] LABS: CREATININE 1.41 mg/dL (0.55-1.02)
--- NOTE | 2018-10-18 07:16 | NUR ---
Shift chart check completed.
[2018-10-18 08:00] VITALS: BP 169/79
--- NOTE | 2018-10-18 09:03 | NUR ---
DR PRADHAN ON THE FLOOR TO SEE THIS PATIENT
[2018-10-18 12:00] VITALS: BP 138/64
--- NOTE | 2018-10-18 12:21 | NUR ---
REPORT CALLED TO OEDSSA CARVAJAL ON 5EAST
--- NOTE | 2018-10-18 14:58 | NUR ---
ORTHOS NEGATIVE AT THIS TIME. SEE PROCESS INTERVENTION FOR VITAL SIGNS.
[2018-10-18 16:00] VITALS: BP 156/74
[2018-10-18 20:00] VITALS: BP 154/47
[2018-10-19] VITALS: BP 128/48
[2018-10-19 06:59] LABS: CREATININE 1.38 mg/dL (0.55-1.02); POTASSIUM 4.8 mmol/L (3.5-5.1)
[2018-10-19 12:00] VITALS: BP 126/58
[2018-10-19 16:00] VITALS: BP 131/52
--- NOTE | 2018-10-19 16:11 | NUR ---
PATIENT RIPPED IV OUT AT THIS TIME AND WAS PLAYING IN HER BM. DR. MALDONADO AWARE AT THIS TIME THAT PATIENT DOES NOT HAVE IV ACCESS. STATES THAT WE DO NOT NEED TO START A NEW IV AT THIS TIME.
--- NOTE | 2018-10-19 20:08 | NUR ---
PT REFUSED VITALS AT ZAK TIMES. HR PULLED FROM POOLROOM/POOLHALL MANAGER.
--- NOTE | 2018-10-20 03:01 | NUR ---
24 HR chart check completed.
[2018-10-20 08:00] VITALS: BP 120/58
--- NOTE | 2018-10-20 09:00 | NUR ---
Family Support Specialist in to talk to patient. Patient states lives at home alone with her boyfriend Don checking in on her. There are 4 steps in the home. Physician: Josue Simmons Pharmacy: [facility] Home health services: has had in the past but not currently Patient's level of ADLs: INDEPENDENT Patient has working utilities: yes DME: none Follow-up physician's appointment after d/c: will be made by the hospitalist nurse director upon discharge Does patient want to access PORTAL?: no Discharge plan discussed with patient. She lives at home alone with her boyfriend, Don, checking in on her. She states she is independent in her ADLs and ambulation. Discussed home health care services and she states she is not going home she is going to [facility] for fraud. When medically stable she will be discharged to [facility]. fat purification worker following. ROMAN WOOD
--- NOTE | 2018-10-20 11:16 | NUR ---
PHYSICAL THERAPY PAtient respectfully declines PT this date. Thank you for this referral. Arline Cisneros,PT
--- NOTE | 2018-10-20 14:27 | NUR ---
PATIENT DISCHARGED TO U. ALL PERSONAL BELONGINGS SENT WITH PATIENT. IV AND AUDIO VISUAL MANAGER DISCONTINUED. DISCHARGE INSTRUCTIONS AND PACKET GIVEN TO NADEEM CARVAJAL FROM [facility].
== END 2018-10-20 14:27 | disposition home health service (06) | DRG 682 ==
LOC: ICCU 12:40 → 5E 10-18 12:26
PROVIDERS: Internal Medicine; Student in an Organized Health Care Education/Training Program; ADMIT Internal Medicine
DX: N17.0 Acute kidney failure with tubular necrosis (principal); G93.41 Metabolic encephalopathy; R65.11 Systemic inflammatory response syndrome (SIRS) of non-infectious origin with acute organ dysfunction; Z68.41 Body mass index [BMI] 40.0-44.9, adult; I95.1 Orthostatic hypotension; F22 Delusional disorders; I12.9 Hypertensive chronic kidney disease with stage 1 through stage 4 chronic kidney disease, or unspecified chronic kidney disease; N18.3 Chronic kidney disease, stage 3 (moderate); E11.22 Type 2 diabetes mellitus with diabetic chronic kidney disease; E55.9 Vitamin D deficiency, unspecified; E78.5 Hyperlipidemia, unspecified; F41.1 Generalized anxiety disorder; G93.89 Other specified disorders of brain; K21.9 Gastro-esophageal reflux disease without esophagitis; E66.01 Morbid (severe) obesity due to excess calories; F32.9 Major depressive disorder, single episode, unspecified; F25.0 Schizoaffective disorder, bipolar type; E03.9 Hypothyroidism, unspecified; D64.9 Anemia, unspecified; E11.65 Type 2 diabetes mellitus with hyperglycemia; Z79.4 Long term (current) use of insulin; Z86.73 Personal history of transient ischemic attack (TIA), and cerebral infarction without residual deficits; Z98.891 History of uterine scar from previous surgery; Z90.49 Acquired absence of other specified parts of digestive tract; Z88.0 Allergy status to penicillin; Z88.6 Allergy status to analgesic agent; Z91.041 Radiographic dye allergy status; Z79.899 Other long term (current) drug therapy

== ENCOUNTER 2018-10-28 12:38 | Inpatient (IN) | payer MEDICARE ==
[~2018-10-28] VITALS: Ht 144.8 cm; Wt 93.2 kg
--- NOTE | ~2018-10-28 | EKG ---
[place], [place] ELECTROCARDIOGRAM REPORT NAME: LAMONTE COELLO UNIT #: [id number] ROOM: 412 DOCTOR: ANA MARÍA DRAFT REPORT BIRTHDATE: [birth year] [facility] Test Date: 2018-10-28 Test Time: 13:55:00 Pat Name: LAMONTE COELLO Department: Room: [facility] 1 Gender: F Workers Compensation Analyst: Garima Jones : 1955 Requested By: BRIANNA SANTIAGO Order Number: [id number] Reading MD: Mona Antonio MD Measurements Intervals [place] Rate: 89 P: 22 SC: 176 QRS: 38 QRSD: 80 T: -4 QT: 345 QTc: 420 Interpretive Statements Sinus rhythm Compared to ECG 10/05/2018 17:48:49 Sinus tachycardia no longer present T-wave abnormality no longer present Electronically Signed On 10-29-2018 16:01:27 PDT by Mona Antonio MD CM:EKGRPT:ELECTROCARDIOGRAM REPORT [id number] BRIANNA MELÉNDEZ DRAFT REPORT BRIANNA SANTIAGO DO
[2018-10-28 12:40] VITALS: BP 145/50
--- NOTE | 2018-10-28 12:40 | NUR ---
Time: 0 A 63 year old FEMALE admitted to under services of KALEN BAZAN DO. Pt. arrived via wheel chair from [facility]. Chief complaint: SEPSIS. ZANDRA PALENCIA
--- NOTE | 2018-10-28 13:40 | NUR ---
DR NOLAN CALLED, HOME MEDS ARE UP TO DATE. AWAITING NEW ORDERS.
--- NOTE | 2018-10-28 14:40 | NUR ---
PATIENT ORDERED 2 VIEW CXR, PT LETHARGIC. DR NOLAN CALLED TO SEE IF IT COULD BE CHANGED TO PORTABLE. DR NOLAN OK WITH PORTABLE CXR. WILL CHANGE ORDER.
[2018-10-28 14:46] LABS: ABG BASE EXCESS -1.2 mmol/L (-2.0-2.0); ABG HCO3 23.2 mmol/l (22-26); ABG O2 SATURATION 96.4 % (95-97); ARTERIAL BLOOD GAS PCO2 38.8 mmHg (35-45); ARTERIAL BLOOD GAS PH 7.392 (7.35-7.45); ARTERIAL BLOOD GAS PO2 77.8 mmHg (80-90)
[2018-10-28 14:52] LABS: BASO # 0.1 10*3/uL (0.0-0.1); BASO % 0.6 % (0.0-1.0); EOS # 0.4 10*3/uL (0.0-0.4); HEMATOCRIT 41.1 % (37.0-47.0); HEMOGLOBIN 12.6 g/dl (12.0-16.0); LYMPH # 1.7 10*3/uL (1.3-4.4); LYMPH % 13.5 % (27.0-41.0); MEAN CELL VOLUME 84.6 fl (81.0-99.0); MEAN CORPUSCULAR HGB 25.9 pg (27.0-31.0); MEAN CORPUSCULAR HGB CONC 30.7 g/dl (33.0-37.0); MONO % 7.6 % (3.0-9.0); NEUT # 9.3 10*3/uL (2.3-7.9); NEUT % 74.4 % (47.0-73.0); PLATELET COUNT AUTOMATED 383 10*3/uL (130-400); RED BLOOD COUNT 4.86 10*6/uL (4.10-5.10); RED CELL DISTRI WIDTH 15.4 % (0-14.5); WHITE BLOOD COUNT 12.5 10*3/uL (4.8-10.8)
--- NOTE | 2018-10-28 14:57 | NUR ---
DR NOLAN CALLED WITH CRITICAL LACTIC ACID OF 2.5. AWAITING FOR NEW ORDERS.
[2018-10-28 15:13] LABS: ALKALINE PHOSPHATASE 137 U/L (45-117); BUN 28 mg/dl (7-24); CHLORIDE 108 mmol/L (98-107); CREATININE 1.52 mg/dL (0.55-1.02); POTASSIUM 4.7 mmol/L (3.5-5.1); SGOT/AST 17 IU/L (3-35); SGPT/ALT 22 U/L (12-78); SODIUM 138 mmol/L (136-145); TOTAL PROTEIN 8.1 gm/dL (6.4-8.2)
[2018-10-28 15:15] LABS: TROPONIN I < 0.015 ng/ml (<0.045)
[2018-10-28 16:00] VITALS: BP 153/75
[2018-10-28 20:00] VITALS: BP 140/70; BP 153/67
[2018-10-29] VITALS: BP 147/68
--- NOTE | 2018-10-29 03:35 | NUR ---
PATIENT RESTING IN BED WITH RESPS EASY AND REGULAR. BED ALARM ON, CALL LIGHT IN REACH
[2018-10-29 06:14] LABS: BASO # 0.1 10*3/uL (0.0-0.1); BASO % 0.4 % (0.0-1.0); EOS # 0.4 10*3/uL (0.0-0.4); EOS % 2.8 % (1.0-4.0); HEMATOCRIT 33.4 % (37.0-47.0); HEMOGLOBIN 10.1 g/dl (12.0-16.0); LYMPH # 1.7 10*3/uL (1.3-4.4); LYMPH % 11.7 % (27.0-41.0); MEAN CELL VOLUME 84.8 fl (81.0-99.0); MEAN CORPUSCULAR HGB 25.6 pg (27.0-31.0); MEAN CORPUSCULAR HGB CONC 30.2 g/dl (33.0-37.0); MEAN PLATELET VOLUME 10.3 fl (9.6-12.3); MONO # 0.9 10*3/uL (0.1-1.0); MONO % 6.5 % (3.0-9.0); NEUT # 11.3 10*3/uL (2.3-7.9); PLATELET COUNT AUTOMATED 353 10*3/uL (130-400); RED BLOOD COUNT 3.94 10*6/uL (4.10-5.10); RED CELL DISTRI WIDTH 15.5 % (0-14.5); WHITE BLOOD COUNT 14.5 10*3/uL (4.8-10.8)
[2018-10-29 06:19] LABS: INTERNATIONAL NORM RATIO 0.9 (2.0-3.5)
[2018-10-29 06:28] LABS: POTASSIUM 4.4 mmol/L (3.5-5.1)
[2018-10-29 06:41] LABS: ALBUMIN 2.6 gm/dl (3.1-4.5); CREATININE 1.32 mg/dL (0.55-1.02); PHOSPHOROUS 3.3 mg/dL (2.5-4.9); THYROID STIM HORMONE (HS) 1.49 uIU/ml (0.358-4.75); TOTAL PROTEIN 6.7 gm/dL (6.4-8.2)
[2018-10-29 07:58] LABS: VITAMIN D, 25-HYDROXY 37.7 ng/mL (30-100)
--- NOTE | 2018-10-29 09:00 | NUR ---
Merchandise Team Manager in to talk to patient. Patient states lives at home with alone, but boyfriend stays occasionally. There are few steps in the home. Physician: matt hillman [facility]acy: [facility] Home health services: none Patient's level of ADLs: MINIMAL ASSIST Patient has working utilities: all working DME: none Follow-up physician's appointment after d/c: will be made by hospitalist nurse director upon discharge Does patient want to access PORTAL?: no Discharge plan discussed with patient, patient lives at home, states her boyfriend is with her most of the time, no assistive ambulation devices used. patient states she will be going back home when able and denies any home needs. PHAM WU
[2018-10-29 12:00] VITALS: BP 134/54
[2018-10-29 16:00] VITALS: BP 147/68
[2018-10-29 19:09] LABS: BILIRUBIN NEGATIVE (NEGATIVE); BLOOD NEGATIVE (NEGATIVE); CLARITY CLEAR (CLEAR); COLOR YELLOW (YELLOW); GLUCOSE NEGATIVE (NEGATIVE); KETONE NEGATIVE (NEGATIVE); LEUKO ESTERASE NEGATIVE (NEGATIVE); NITRITE NEGATIVE (NEGATIVE); UROBILINOGEN 0.2 E.U./dl (0.2-1.0)
[2018-10-29 19:24] LABS: BACTERIA TRACE; EPITHELIAL CELLS 0-2; WBC 0-2 wbc/hpf (0-5)
[2018-10-29 20:00] VITALS: BP 157/78
[2018-10-30] VITALS: BP 150/51
--- NOTE | 2018-10-30 04:12 | NUR ---
RESTING IN BED WITH EYES CLOSED. RESPIRATIONS ARE EASY AND REGULAR. NO DISTRESS IS NOTED. CALL LIGHT IS WITHIN REACH. WILL MONITOR.
[2018-10-30 05:39] LABS: CREATININE 1.29 mg/dL (0.55-1.02); POTASSIUM 3.8 mmol/L (3.5-5.1)
[2018-10-30 06:15] LABS: BASO # 0.1 10*3/uL (0.0-0.1); BASO % 0.5 % (0.0-1.0); EOS # 0.6 10*3/uL (0.0-0.4); EOS % 4.7 % (1.0-4.0); HEMOGLOBIN 10.2 g/dl (12.0-16.0); LYMPH # 2.1 10*3/uL (1.3-4.4); LYMPH % 17.4 % (27.0-41.0); MEAN CELL VOLUME 83.5 fl (81.0-99.0); MEAN CORPUSCULAR HGB 25.8 pg (27.0-31.0); MEAN CORPUSCULAR HGB CONC 30.9 g/dl (33.0-37.0); MEAN PLATELET VOLUME 10.6 fl (9.6-12.3); MONO % 8.1 % (3.0-9.0); NEUT # 8.3 10*3/uL (2.3-7.9); NEUT % 68.6 % (47.0-73.0); PLATELET COUNT AUTOMATED 363 10*3/uL (130-400); RED BLOOD COUNT 3.95 10*6/uL (4.10-5.10); RED CELL DISTRI WIDTH 15.3 % (0-14.5)
[2018-10-30 08:00] VITALS: BP 148/60
--- NOTE | 2018-10-30 09:00 | NUR ---
case management visits with patient, patient will be going home when able and have [facility], no other needs at this time
--- NOTE | 2018-10-30 10:28 | NUR ---
Patient to discharge today to home. Appointments scheduled with Mental Health Follow up at [facility] 11/03/2018 1:00 p.m. with David Counselor. Saturday11/04/2018 1:40 p.m. with Lina Nurse Practitioner for Medications. Primary Care Follow Up with Josue Simmons 11/06/2018 3:00 p.m. [facility] to follow. [place] [facility] notified of Discharge Home. Voice Message left for Software Release Manager Deepa Gonzales .
[2018-10-30] MEDS ORDERED: LEVAQUIN750 M1 PO (10:45)
--- NOTE | 2018-10-30 11:14 | NUR ---
Discharge Paperwork faxed to [facility] and Josue PEREIRA.
--- NOTE | 2018-10-30 12:02 | NUR ---
PATIENT RESUDED BLOOD SUGAR AT THIS TIME.
--- NOTE | 2018-10-30 12:12 | NUR ---
BOYFRIEND FOSTER CALLED. WILL BE IN TO PICK HER UP.
--- NOTE | 2018-10-30 12:45 | NUR ---
Discharge instructions reviewed with patient/family. Patient receptive and verbalizes understanding. Follow-up care arranged. Written instructions given to patient/family. PATIENT DISCHARGED HOME WITH BOYFRIEND-FOSTER. ZANDRA PALENCIA
--- NOTE | 2018-10-30 13:58 | NUR ---
case mangement attempted to speak with Faina from [facility], left voicemail that patient is being discharged today and information faxed
== END 2018-10-30 12:45 | disposition home or self-care (01) | DRG 871 ==
LOC: 4E 12:38
PROVIDERS: Student in an Organized Health Care Education/Training Program; ADMIT Internal Medicine
DX: A41.9 Sepsis, unspecified organism (principal); E43 Unspecified severe protein-calorie malnutrition; N30.00 Acute cystitis without hematuria; Z68.41 Body mass index [BMI] 40.0-44.9, adult; R65.20 Severe sepsis without septic shock; E87.8 Other disorders of electrolyte and fluid balance, not elsewhere classified; I12.9 Hypertensive chronic kidney disease with stage 1 through stage 4 chronic kidney disease, or unspecified chronic kidney disease; N18.3 Chronic kidney disease, stage 3 (moderate); E11.65 Type 2 diabetes mellitus with hyperglycemia; E11.22 Type 2 diabetes mellitus with diabetic chronic kidney disease; F25.0 Schizoaffective disorder, bipolar type; E55.9 Vitamin D deficiency, unspecified; E78.5 Hyperlipidemia, unspecified; F41.1 Generalized anxiety disorder; F32.9 Major depressive disorder, single episode, unspecified; K21.9 Gastro-esophageal reflux disease without esophagitis; E03.9 Hypothyroidism, unspecified; D64.9 Anemia, unspecified; E66.01 Morbid (severe) obesity due to excess calories; Z86.73 Personal history of transient ischemic attack (TIA), and cerebral infarction without residual deficits; Z90.49 Acquired absence of other specified parts of digestive tract; Z90.722 Acquired absence of ovaries, bilateral; Z83.1 Family history of other infectious and parasitic diseases; Z84.89 Family history of other specified conditions; Z88.6 Allergy status to analgesic agent; Z91.041 Radiographic dye allergy status; Z88.0 Allergy status to penicillin; Z91.048 Other nonmedicinal substance allergy status; Z79.84 Long term (current) use of oral hypoglycemic drugs

== ENCOUNTER 2019-06-17 08:16 | Emergency (ER) | payer MEDICARE ==
[~2019-06-17] VITALS: Wt 120.2 kg
[2019-06-17 08:16] VITALS: BP 0/0
[~2019-06-17 08:16] MED LIST changes: +LEVAQUIN750 M1 PO
== END 2019-06-17 11:07 | disposition expired ==
LOC: ED 08:21
DX: I46.9 Cardiac arrest, cause unspecified (principal); E11.22 Type 2 diabetes mellitus with diabetic chronic kidney disease; I12.9 Hypertensive chronic kidney disease with stage 1 through stage 4 chronic kidney disease, or unspecified chronic kidney disease; N18.3 Chronic kidney disease, stage 3 (moderate); E78.5 Hyperlipidemia, unspecified; Z88.6 Allergy status to analgesic agent; K21.9 Gastro-esophageal reflux disease without esophagitis; G43.909 Migraine, unspecified, not intractable, without status migrainosus; E03.9 Hypothyroidism, unspecified; E66.01 Morbid (severe) obesity due to excess calories; Z91.041 Radiographic dye allergy status; Z88.0 Allergy status to penicillin; Z79.2 Long term (current) use of antibiotics; Z79.899 Other long term (current) drug therapy; Z86.73 Personal history of transient ischemic attack (TIA), and cerebral infarction without residual deficits; Z90.49 Acquired absence of other specified parts of digestive tract